=== PATIENT | male | born 1960 | race Caucasian/White ===

== ENCOUNTER → 2017-04-22 | Outpatient (CLI) | payer BC ==
[~2017-04-22] MED LIST: ADVIL200 M3 PO; TYLENOL EXTRA500 M1 PO
--- NOTE | ~2017-04-22 | MR113 ---
[facility] A Service of [facility] & [facility] RADIOLOGY TEXT RESULTS PATIENT: TAISHA CORDOVA LOCATION: [facility] : 64 UNIT #: [id number] AGE: [address]: Harpal Powell MD SEX: M ORDER DR: [id number] [address] [address] [id number] O MR#: [id number] Acc #: [id number] NAME: TAISHA CORDOVA : 1960 SEX: M STUDY DATE/TIME: 04/22/2017 8:54 UNIT: [facility] ROOM: STUDY DESCRIPTION: MR Lumbar Wo Contrast Attending Physician: Harpal Powell M.D. Referring Physician: Harpal Powell M.D. Ordering Physician: Harpal Powell M.D. Primary Care Physician: Harpal Powell M.D. MRI CENTER REPORT This report is preliminary unless electronic signature is present. EXAM MRI of the lumbar spine without contrast dated 04/22/2017. COMPARISON Plain films lumbar spine dated 03/02/2017. HISTORY Low back pain that radiates down the left leg since December 2016. Occasional numbness and tingling down the left leg. FINDINGS Multisequence multiplanar imaging of the lumbar spine was obtained without contrast. Vertebral body heights and alignment are preserved. Degenerative disc disease is noted at multiple levels of the thoracolumbar spine. Conus terminates at L1. Signal of conus and cauda equina are within normal limits. There is an increased T2 and heterogeneous T1 signal, incompletely included oval 1.2 x 1.6 cm lesion in the anteromedial aspect of the superior right kidney. An increased T2-signal lesions is noted in the posterolateral inferior left kidney measuring 1.6 x 1.2 cm. These are incompletely characterized on the current study. There are no prior abdominal images available. L1-2: Mild disc bulge with small right subarticular protrusion with annular fissure. No canal stenosis or neural foraminal narrowing. L2-3: Right foraminal to extraforaminal broad-based protrusion which extends towards the right subarticular region. Mild inferior right neural foraminal encroachment is seen. No canal stenosis. L3-4: Minimal bilateral facet change but otherwise unremarkable. L4-5: Concentric disc bulge with bilateral foraminal annular fissures. Mild inferior bilateral neural foraminal narrowing is seen with mild right and [id number] left facet hypertrophic change. No significant canal stenosis. L5-S1: Concentric disc bulge with superimposed left [facility]articular [facility] A Service of [facility] & [facility] RADIOLOGY TEXT RESULTS PATIENT: TAISHA CORDOVA [id number] [birth year] UNIT #: [id number] AGE: [address]: Harpal Powell MD SEX: M ORDER DR: extraforaminal broad-based protrusion with an extruded component in the left subarticular region measuring 1.1 cm in height. There is severe impingement of left S1 nerve root with posterior displacement. Mild inferior bilateral neural foraminal encroachment is seen. No canal stenosis. IMPRESSION 1. Multilevel degenerative changes are noted with varying degrees of disc herniations. 2. It is worse at L5-S1 with left subarticular disc extrusion with inferior migration and impingement and posterior displacement of the left S1 nerve root within the left lateral recess. Correlate with left S1 radiculopathy. 3. Protrusions are noted at right subarticular to right extraforaminal region of L2-3 and in the right subarticular region of L1-2. 4. Bilateral renal lesions are noted, incompletely characterized on the current study. They could represent simple and complex cysts, however correlation with prior studies are suggested if available outside. Renal ultrasound gross CT renal mass protocol can be considered as alternative for further characterizing it. Dictated by... Dez Mccullough M.D. THIS IS AN ELECTRONICALLY VERIFIED REPORT Dez Mccullough M.D. at 04/26/2017 2:48 PM CPR/gz TD: 04/25/2017 16:20 JOB #: [id number] MRI CENTER REPORT Page 1 of 1
== END | disposition home or self-care (01) ==
LOC: SMRI 08:16
DX: M51.16 Intervertebral disc disorders with radiculopathy, lumbar region (principal); M47.26 Other spondylosis with radiculopathy, lumbar region; N28.89 Other specified disorders of kidney and ureter
CPT/HCPCS: 72148

== ENCOUNTER → 2017-05-04 | Day surgery (SDC) | payer BC ==
--- NOTE | ~2017-05-04 | OR ---
Unit #: [id number] #: [id number] Patient: TAISHA CORDOVA [id number] [address] [place], [place] [address] [id number] O MR#: [id number] NAME: TAISHA CORDOVA ROOM: Date of Procedure: 05/04/2017 Admission Date: 05/04/2017 Surgeon: Gold Patel M.D. : 1960 Attending Physician: Gold Patel M.D. Primary Care Physician: Harpal Powell M.D. SURGERY CENTER OPERATIVE NOTE PROCEDURE PERFORMED Lumbar epidural steroid injection under x-ray guided needle placement with provider administered conscious sedation. PREOPERATIVE DIAGNOSES 1. Acute lumbar radiculitis. 2. Spinal stenosis, lumbosacral spine. 3. Degenerative joint disease, lumbosacral spine. 4. Degenerative disk disease, lumbosacral spine. 5. Herniated disk, L5-S1. INDICATIONS FOR PROCEDURE The patient presents today with longstanding history of left-sided radicular pain secondary to his underlying degenerative processes. This pain has been present for approximately 5 months and has responded variously to conservative management consisting of medication and physical therapy. However, over the course of the recent few weeks, has begun to advance in a crescendo pattern, no longer responding to conservative management. His signs and symptoms are consistent with his x-ray findings. It was noted that he did have appeared to have renal cyst on his MRI. These were informed of the patient and his significant other with a recommendation for followup. Following these discussions which included discussion of risks and benefits of proceeding today with a lumbar approach epidural steroid injection, the patient agreed this would be the appropriate course of action. DESCRIPTION OF PROCEDURE He was then taken to the operating room, where he was prepped and draped in a sterile manner. Standard monitors were applied. He was sedated with 2 mg of IV Versed and lumbar epidural space accessed at the L5-S1 level using loss of resistance technique and x-ray guidance. Needle placement was confirmed with injection of 2 mL of Omnipaque. There was good left sided superior and inferior flow at this L5-S1 placed needle. Following successful needle placement confirmation which required an x-ray time of 4 seconds, the patient received an injectate containing 2 mL normal saline, 2 mL of 0.25% bupivacaine, and 80 mg of methylprednisolone. He tolerated this procedure well. He was discharged home with followup instructions which include return to this clinic on 05/30/2017, at which point, he will be evaluated for a second procedure. Dictated by... Gold Patel M.D. Unit #: [id number] #: [id number] Patient: TAISHA CORDOVA Ronald PABLO/hellen TD: 05/04/2017 12:31 JOB #: [id number] CC: Harpal Powell M.D. SURGERY CENTER OPERATIVE NOTE Page 1 of 1 X Heath Patel MD X PROCEDURE OPERATIVE NOTE
== END | disposition home or self-care (01) ==
LOC: CCSC 09:52
DX: M51.17 Intervertebral disc disorders with radiculopathy, lumbosacral region (principal); M47.27 Other spondylosis with radiculopathy, lumbosacral region; M48.07 Spinal stenosis, lumbosacral region
CPT/HCPCS: J1040; J2250